=== PATIENT | female | born 1950 | race Caucasian/White ===

== ENCOUNTER 2024-06-11 11:34 | Outpatient (CLI) | payer MEDICARE, BC | END 2024-06-11 23:59 | disposition home or self-care (01) | LOC: RAD 11:34 | PROVIDERS: ATTEND Internal Medicine Rheumatology | DX: M84.442A Pathological fracture, left hand, initial encounter for fracture (principal); M19.042 Primary osteoarthritis, left hand; M11.242 Other chondrocalcinosis, left hand; M79.642 Pain in left hand; M79.641 Pain in right hand | CPT/HCPCS: 73110 ==